=== PATIENT | male | born 1950 | race Caucasian/White ===

== ENCOUNTER → 2021-04-04 | Outpatient (CLI) | payer MEDICARE | LOC: KOH-I 14:18 | DX: S82.51XD Displaced fracture of medial malleolus of right tibia, subsequent encounter for closed fracture with routine healing (principal) | CPT/HCPCS: 73610 ==

== ENCOUNTER → 2021-04-12 | Outpatient (CLI) | payer MEDICARE | LOC: KOH-I 16:00 | DX: S82.841K Displaced bimalleolar fracture of right lower leg, subsequent encounter for closed fracture with nonunion (principal) | CPT/HCPCS: 73700 ==